=== PATIENT | male | born 1965 | race Caucasian/White ===

== ENCOUNTER 2016-12-23 10:45 | Day surgery (SDC) | payer OTHER ==
[2016-12-23] VITALS (9 sets, daily range): BP systolic 106–131; BP diastolic 61–85; PULSE 68–86; RESP 11–26; O2SAT 95–98
[~2016-12-23] VITALS: Ht 185.4 cm; Wt 111.8 kg
[~2016-12-23 10:45] MED LIST: CeFAZolin Inj 2 GM in IV Premix 1 EACH IV ONE
[2016-12-23] MEDS ORDERED: Propofol 10,000 mCg/mL 20 mL Inj ONE (10:46)
[2016-12-23] MEDS ORDERED: Dexamethasone 4 mg/mL Inj ONE (10:46)
[2016-12-23] MEDS ORDERED: EPHEDrine/NS 5 mg/mL 5 mL Syringe ONE (10:46)
[2016-12-23] MEDS ORDERED: fentaNYL-PF 50 mCg/mL 2 mL Inj ONE (10:46)
[2016-12-23] MEDS ORDERED: Ondansetron 2 mg/mL 2 mL Inj ONE (10:46)
[2016-12-23] MEDS ORDERED: Lactated Ringer's 1,000 ML IV ONE ×3 (11:46→17:15)
[2016-12-23] MEDS ORDERED: CeFAZolin Inj 2 gm / 50mL D5W IV ONE (12:54)
[2016-12-23] MEDS ORDERED: Bupivacaine-MPF 0.25%/EPI 30 mL Inj INJ ONE (14:35)
[2016-12-23] MEDS ORDERED: Lactated Ringer's 1,000 ML IV SCH (14:38)
[2016-12-23] MEDS ORDERED: Lactated Ringer's 500 ML IV PRN (14:38)
--- NOTE | 2016-12-23 14:38 | PCM.HPANE ---
Patient Data Surgeon Admitting Provider: Attending Provider:Janny Gonzalez MD Primary Care Physician:Jj Lua MD Other Provider:Maria Del Rosario Diamondingham Anesthesia Reason for Visit Right Inguinal Hernia Ht/WT & BMI Height (Feet): 6 Height (Inches): 1.00 Weight (Kilograms): 111.800 Body Mass Index 32.00 Allergies Coded Allergies: No Known Allergies (Unverified , 12/22/16) Past Anesthesia History Anesthesia History: Denies:: Anesthesia Reactions Diabetes History Hx Diabetes?: No MRSA MRSA: No Medications Hypertension Medication: No Home Meds Incl Beta Ibrahima: No No Active Prescriptions or Reported Meds History History of ENT Problems?: No HEENT History: Denies:: Abnormal Airway Cataracts Difficult Intubation Dysphagia Glaucoma Hearing Problem Sinus Problem TMJ Denture Type: None Teeth Condition: Within Normal Limits Other HEENT Pertinent History: braces Hx of Heart Problems?: No Cardiovascular History: Denies:: Edema Hypertension Hx of Respiratory Problem?: No Respiratory History: Denies:: Asthma COPD Emphysema Use of C-PAP Machine (sleep study +, CPAP not covered by insurance) Hx Neurologic Problems?: No Neurological History: Denies:: CVA Multiple Sclerosis Parkinson's Disease Seizures Hx of GI Problems?: Yes Other GI Pertinent History: right inguinal hernia current admission problem Hx of Problems?: No Genitourinary History: Denies:: Kidney Stones Urinary Tract Infection Male Hx: Denies:: Prostate Problems Skin History: Denies:: History Skin Disorders? Pressure Ulcers Hx Musculoskeletal Problems?: Yes Musculoskeletal History: Positive for:: Musculoskeletal Trauma (past hx of shoulder, hand, foot surgery) Hx of Psycho/Social Problems?: No Hx Surgeries?: Yes (shoulder, hand, foot, pyloric myotomy as ) Hx Any Other Health Problems?: Yes Other History: Denies:: Cancer Thyroid Disease Hx Diabetes: No Hx Alcohol Use: NoHx Substance Use: No Stop/Bang S-Snoring: Do You Snore Loudly: Yes T-Tired: feel tired, fatigued: No O-Obsered: Observed not breath: Yes P-Blood Pressure: treated: No B- Body Mass Index > 35 kg/m2: No A- Age over 50: Yes N- Neck Large Circumference: No G- Gender Male: Yes ZHEN Total Score: 4 ZHEN Risk Assessment: High Risk, =/>3 Yes Risk Assessment Category Category 1A: Patient has history of documented sleep apnea, and HAS NOT received any narcotic, sedative or anesthesia administration during this stay. Category 1B: Patient has history of documented sleep apnea, and HAS received any narcotic , sedative or anesthesia administration during this stay Category 2: Patient has SUSPECTED Obstructive Sleep Apnea, and HAS received any narcotic , sedative or anesthesia administration during this stay. Category 3: Patient has SUSPECTED Obstructive Sleep Apnea and HAS NOT received narcotic, sedative or anesthesia administration during this stay. Category 4: Outpatient in Procedural Areas with known sleep apnea or who screen positive for High Risk via the STOP/BANG questionnaire. Exam Exam Vital Signs Vital Signs Date Time Temp Pulse Resp B/P Pulse Ox O2 Delivery O2 Flow Rate FiO2 12/23/16 11:07 68 16 120/80 98 Room Air General Appearance: Alert, Oriented X3 HEENT/AIRWAY: MP 2 Lungs: Clear to Auscultation Heart: Exam Unremarkable, Regular Rate/Rhythm Meds/Labs/Diagnostics Admission Meds Current Medications Lactated Ringer's (Lr) 1,000 ml @ ud STK-MED ONCE IV Last administered on 12/23t 11:46; Start 12/23/16 at 11:46; Stop 12/23/16 at 11:47; Status DC Plan Impression Patient chart reviewed, patient interviewed and anesthestic plan with risks, benefits, and alternatives discussed, and informed consent obtained. ASA Physical Status: ASA2 Mod Systemic Disease Anesthetic Plan: GA Bene/Risks/Altern/Consents: Yes HP Complete Prior to Induction: Yes Long Lomax DO Dec 23, 2016 13:27
[2016-12-23] MEDS ORDERED: HYDROmorphone 1 mg/mL Inj IVPUSH PRN (14:40)
[2016-12-23] MEDS ORDERED: MetoCLOpramide 5 mg/mL 2 mL Inj IVPUSH PRN (14:40)
[2016-12-23] MEDS ORDERED: EPHEDrine Sulfate 50 mg/mL Inj IVPUSH PRN (14:40)
[2016-12-23] MEDS ORDERED: Dexamethasone 4 mg/mL Inj IVPUSH PRN (14:40)
[2016-12-23] MEDS ORDERED: Ondansetron 2 mg/mL 2 mL Inj IVPUSH PRN (14:40)
[2016-12-23] MEDS ORDERED: Phenylephrine 10,000 mCg/mL Inj IVPUSH PRN (14:40)
[2016-12-23] MEDS: fentaNYL-PF 50 mCg/mL 2 mL Inj IVPUSH PRN ×3 (15:58→16:30)
[2016-12-23] MEDS ORDERED: oxyCODONE-Acetamin 5-325 mg Tablet PO PRN (16:00)
--- NOTE | 2016-12-23 16:04 | PCM.SURGOP ---
Surgical Operative Report Date of Service: Dec 23, 2016 Pre Operative Diagnosis Right inguinal hernia Post Operative Diagnosis Indirect right inguinal hernia Procedure: Open right inguinal hernia repair with mesh Surgeon and Sales Representative Graphic Art: Surgeon: Janny Gonzalez MD Assistants: Rafael Raman PA-C Indication for Procedure There is a 51-year-old male who presented as an outpatient with a right groin bulge causing pain. Physical examination and history were consistent with right inguinal hernia. Therefore he was consented for surgery. Findings: 1. Extremely large cord lipoma, resected. 2. Small indirect inguinal hernia. 3. Weak floor without direct inguinal hernia. 4. Reyes repair performed with Bard soft ultralight weight mesh. Procedure Details The patient was brought to the operating room and placed in supine position. General anesthesia with an LMA was smoothly induced. A warming blanket and SCDs were placed. Antibiotics were infused. The operative field was prepped and draped in sterile fashion. A pause was performed to confirm the correct patient, procedure, site, and side. An oblique incision was made between the ASIS and pubic tubercle. Subcutaneous tissue was dissected with electrocautery. The external oblique was incised sharply and divided with Metzenbaum scissors. The spermatic cord was identified, dissected free of surrounding tissues, and surrounded with a [place] drain for retraction. The iliohypogastric nerve was identified, dissected, and divided high. Dissection began to identify the hernia sac. Initially, this was difficult, because the patient had an extremely large cord lipoma. This was dissected off of the cord until the indirect hernia sac was identified. It was opened and then dissected off of the spermatic cord. There were no incarcerated viscera. Care was taken to preserve the spermatic cord contents, including the vas deferens and visible vasculature. The sac was ligated high using a 3-0 silk, amputated, discarded, and the stump was reduced after hemostasis was confirmed. The cord lipoma was then dissected high, ligated with 3-0 Vicryl, and amputated. Finally, there was a second very small cord lipoma, which was ligated and amputated and discarded in similar fashion. Attention was then turned to mesh placement. The direct space was noted to be thinned and weak with a tiny bulge. A piece of 3 inch by 6 inch ultralight Bard Softmesh was fashioned to size with care taken to provide adequate coverage of the floor. Interrupted 3-0 PDS stitches were then used to suture it into place. The first stitch was placed in the tissue overlying the pubic tubercle with greater than 1 cm of overlap to prevent recurrence. Additional stitches were then used at 1.5 cm intervals to suture the lateral aspect of the mesh to the shelving edge of the inguinal ligament. Several stitches were then placed medially to affix the mesh to the conjoined tendon. At the end of the case, the floor was covered with mesh. Two tails were fashioned to recreate the internal ring. These were sutured to each other and to the shelving edge of the inguinal ligament. The new ring was large enough to pass the cord and the tip of the surgeon's fifth digit. The [place] drain was removed and the external oblique was then closed with a running 3-0 Vicryl stitch. Subcutaneous tissue was closed with 3-0 Vicryl stitches. The skin was closed with a running 4-0 Monocryl stitch. Marcaine 0.5% with epinephrine was infused in the skin for postoperative analgesia. A sterile dressing was placed. The patient was awakened from general anesthesia and taken to postoperative care unit in good condition. Complications There were no periprocedural complications identified. Surgical Specimen Removed: Yes Specimen sent to Pathology: No Surgical Specimen description: Cord lipoma 2 Anesthetic Plan: GA Grafts, Implants: Implants-See Implant Record Output, Estimated Blood Loss: 2 (ml) Blood Administration during stephenson: Janny Salomon MD Dec 23, 2016 16:04
--- NOTE | 2016-12-23 16:51 | PCM.ANEP1 ---
Post Anesthesia Phase 1 PACU Phase 1 Assessment Date of Service: Dec 23, 2016 Vital Signs Vital Signs Date Time Temp Pulse Resp B/P Pulse Ox O2 Delivery O2 Flow Rate FiO2 12/23/16 16:35 71 16 108/69 95 Room Air 12/23/16 16:25 75 19 107/61 96 Room Air 12/23/16 16:10 82 11 124/76 96 Room Air 12/23/16 16:05 86 15 126/71 95 Room Air 12/23/16 16:00 82 17 127/85 95 Room Air 12/23/16 15:55 36.9 76 26 131/76 98 Room Air 12/23/16 11:07 68 16 120/80 98 Room Air Anesthetic Administered: GA Level of Alertness: Awake, talking RICHARDS's with Equal Strength: Yes Pain: Yes Pain Scale Score: 5 Nausea or Vomiting: No Cardiovascular Function and Hy: No Oxygen Delivery: Room Air Lungs: Clear to Auscultation Complications: No Follow up Care: No Patient Instructions Provided: Yes Long Lomax DO Dec 23, 2016 16:51
== END 2016-12-23 23:59 | disposition home or self-care (01) ==
LOC: SAS 10:45
PROVIDERS: ATTEND Surgery
DX: K40.90 Unilateral inguinal hernia, without obstruction or gangrene, not specified as recurrent (principal); D17.6 Benign lipomatous neoplasm of spermatic cord; G47.33 Obstructive sleep apnea (adult) (pediatric)
CPT/HCPCS: 49505; C1781; J0690; J1100; J1170; J1885; J2405; J3010; J7120